=== PATIENT | male | born 1960 | race Caucasian/White ===

== ENCOUNTER 2020-08-07 15:16 | Emergency (ER) | payer OTHER ==
[2020-08-07] MEDS ORDERED: KETOROLAC 30 MG/ML VIAL IM STA (16:01)
--- NOTE | 2020-08-07 16:19 | XRAY Report ---
PROCEDURE: Chest 2 View X-Ray INDICATIONS: fall onto R side with rib pain TECHNIQUE: 2 view(s) of the chest. COMPARISON: None. FINDINGS: Surgical changes and devices: None. Lungs and pleura: No pleural effusions or pneumothorax. Lungs are clear. Mediastinum: Mediastinal contours are normal. Heart size is normal. Bones and chest wall: No suspicious bony abnormalities. Soft tissues appear unremarkable. IMPRESSION: No acute pulmonary process. No visualized acute fracture or dislocation. However, occult injury cannot be excluded. Recommend short interval imaging follow-up in 7-10 days as clinically ind icated for additional evaluation. Reviewed by: Emelina Mccall MD on 08/07/2020 4:18 PM PDT Approved by: Emelina Mccall MD on 08/07/2020 4:18 PM PDT Station ID: [id number]
--- NOTE | 2020-08-07 17:41 | ED Physician Documentation ---
History of Present Illness - Stated complaint Stated Complaint: FELL - BACK PX - Chief complaint Chief Complaint: Trauma Ch/Bk - History obtained from History obtained from: Patient - Additonal information Additional information: 59yM with pmh MS [place] R posterior ribcage. patient experienced sudden onset sharp pain at that site of moderate severity, constant since that time and worse with deep breathing and cough. denies other injury. denies sob or cp at rest. Review of Systems Cardiac: denies: Chest pain / pressure Skin: denies: Lesions, Abrasion (s), Laceration (s) Musculoskeletal: reports: Back pain PD PAST MEDICAL HISTORY - Past Medical History GI: GERD Musculoskeletal: Other Other Past Medical History: MS - Past Surgical History Past Surgical History: No - Present Medications Home Medications: Ambulatory Orders Medication Instructions Recorded Confirmed Acetaminophen [Tylenol] 650 mg PO Q6H PRN #30 tab 08/07/20 Famotidine [Pepcid] 20 mg PO DAILY 08/07/20 08/07/20 - Allergies Allergies/Adverse Reactions: Allergies Allergy/AdvReac Type Severity Reaction Status Date / Time No Known Drug Allergies Allergy Verified 08/07/20 15:25 - Social History Does the pt smoke?: No Smoking Status: Former smoker Does the pt drink ETOH?: Yes Does the pt have substance abuse?: No - Immunizations Immunizations are current?: Yes - POLST Patient has POLST: No PD ED PE NORMAL - Vitals Vital signs reviewed: Yes - General General: Alert and oriented X 3, No acute distress, Well developed/nourished - HEENT HEENT: Atraumatic, PERRL, EOMI - Neck Neck: No bony TTP - Cardiac Cardiac: RRR, Other (R posterior ribcage ttp with palpable deformity along posterior 12th rib) - Respiratory Respiratory: No respiratory distress, Clear bilaterally - Back Back: No spinal TTP - Derm Derm: Normal color, Warm and dry - Extremities Extremities: No deformity - Neuro Neuro: Alert and oriented X 3 Results - Vitals Vitals: Vital Signs - 24 hr 08/07/20 08/07/20 15:27 17:55 Temperature 36.9 C 36.9 C Heart Rate 74 60 Respiratory 18 18 Rate Blood Pressure 157/73 H 143/94 H O2 Saturation 97 100 Oxygen O2 Source Room air PD MEDICAL DECISION MAKING - ED course Complexity details: reviewed results, d/w patient ED course: 59yM p/w R posterior rib fracture s/p fall yesterday. xray report not showing the fracture however it is palpable on exam. patient has strong cough and good inspiratory effort. he states his pain is under good control and he feels comfortable following up in surgery clinic as an outpatient at this time. strict return precautions given. Departure - Departure Disposition: Home, Self Care Clinical Impression: Rib fracture Condition: Good Instructions: ED Fx Rib Follow-Up: Jana Campos MD [Provider Admit Priv/Credential] - Prescriptions: Acetaminophen [Tylenol] 650 mg PO Q6H PRN #30 tab PRN Reason: Pain Comments: You were seen in the emergency department for a rib fracture on your right 12th rib on the back. The xray didn't show it, but I can feel it on exam. It can take 6 weeks for bones to heal so take it easy in the meantime and make sure that you are controlling your pain well and taking deep breaths and getting lots of rest. Return to the emergency department if you develop fevers, shortness of breath, worsening pain or other concerning symptoms. Follow-up in surgery clinic in 1 week. Discharge Date/Time: 08/07/20 17:55
[2020-08-07 17:56] VITALS: BP 143/94
== END 2020-08-07 17:55 | disposition home or self-care (01) ==
LOC: ED 15:16
DX: S22.31XA Fracture of one rib, right side, initial encounter for closed fracture (principal); W18.31XA Fall on same level due to stepping on an object, initial encounter; Y93.01 Activity, walking, marching and hiking; Y92.832 Beach as the place of occurrence of the external cause; Z87.891 Personal history of nicotine dependence
CPT/HCPCS: 96372; 99283; 99284

== ENCOUNTER 2023-01-05 10:15 | Outpatient (CLI) | payer OTHER ==
[2023-01-05 18:04] LABS: BILIRUBIN,URINE NEGATIVE (NEGATIVE); GLUCOSE, URINE (UA) NEGATIVE (NEGATIVE); KETONES,URINE (UA) NEGATIVE (NEGATIVE); LEUKOCYTE ESTERASE, URINE TRACE (NEGATIVE); NITRITE,URINE NEGATIVE (NEGATIVE); OCCULT BLOOD,URINE NEGATIVE (NEGATIVE); PROTEIN,URINE NEGATIVE (NEGATIVE); UROBILINOGEN,URINE 0.2 (NORMAL) E.U./dL (NORMAL)
[2023-01-05 18:12] LABS: CLARITY,URINE HAZY (CLEAR)
[2023-01-05 18:14] LABS: BASOPHILS # (AUTO) 0.1 10^3/uL (0.0-0.1); BASOPHILS % (AUTO) 1.1 %; EOSINOPHILS # (AUTO) 0.2 10^3/uL (0.0-0.7); EOSINOPHILS % (AUTO) 4.8 %; HCT - HEMATOCRIT 37.5 % (42.0-52.0); HGB - HEMOGLOBIN 12.2 g/dL (14.0-18.0); LYMPHOCYTES # (AUTO) 1.4 10^3/uL (1.5-3.5); LYMPHOCYTES % (AUTO) 32.6 %; MEAN CORPUSCULAR HEMOGLOBIN 30.5 pg (27.0-31.0); MEAN CORPUSCULAR HGB CONC 32.5 g/dL (32.0-36.0); MEAN CORPUSCULAR VOLUME 93.8 fL (80.0-94.0); MEAN PLATELET VOLUME 10.5 fL (7.4-11.4); MONOCYTES # (AUTO) 0.8 10^3/uL (0.0-1.0); MONOCYTES % (AUTO) 18.9 %; NEUTROPHILS # (AUTO) 1.8 10^3/uL (1.5-6.6); NEUTROPHILS % (AUTO) 41.9 %; PLT - PLATELET COUNT 256 10^3/uL (130-450); RED CELL DISTRIBUTION WIDTH 12.5 % (12.0-15.0); WHITE BLOOD COUNT 4.4 x10^3/uL (4.8-10.8)
[2023-01-05 18:35] LABS: CALCIUM 9.5 mg/dL (8.5-10.3); CREATININE 0.9 mg/dL (0.6-1.3); POTASSIUM 4.2 mmol/L (3.5-4.5)
[2023-01-05 18:38] LABS: RBC,URINE None Seen /HPF (0-5); SQUAMOUS EPITHELIAL CELL,UR NONE SEEN (<= Few); WBC,URINE 0-3 /HPF (0-3)
[2023-01-05 18:39] LABS: BACTERIA,URINE None Seen /HPF (None Seen)
== END 2023-01-05 10:30 | disposition home or self-care (01) ==
LOC: LAB.N 10:15
PROVIDERS: ATTEND Physician Assistant Medical
DX: R31.0 Gross hematuria (principal)
CPT/HCPCS: 36415; 80048; 81001; 85025